=== PATIENT | female | born 1980 | race Caucasian/White ===

== ENCOUNTER 2020-03-24 12:05 | Emergency (ER) | payer MEDICAID ==
[~2020-03-24] VITALS: Ht 154.9 cm; Wt 100.0 kg
[2020-03-24 12:32] VITALS: BP 123/61
[2020-03-24] MEDS ORDERED: ALBU6.7H9 INH (12:32)
== END 2020-03-24 12:41 | disposition home or self-care (01) ==
LOC: ER 12:05
DX: J45.909 Unspecified asthma, uncomplicated (principal); R05 Cough; F15.90 Other stimulant use, unspecified, uncomplicated; F17.200 Nicotine dependence, unspecified, uncomplicated; Z79.899 Other long term (current) drug therapy
CPT/HCPCS: 99283

== ENCOUNTER 2020-03-26 12:20 | Emergency (ER) | payer MEDICAID ==
[~2020-03-26] VITALS: Ht 154.9 cm; Wt 100.0 kg
[~2020-03-26 12:20] MED LIST: ALBU6.7H9 INH
--- NOTE | 2020-03-26 12:37 | NUR ---
pt is 39 yo female c/o cough off and on x1 year, increased over past two days, runny nose x3 days, seen here on Tuesday and prescribed inhaler, pt did smoke/snort meth on Tuesday, started [facility] [employer] [facility] on Tuesday, smokes 1/2 ppd, report to Sheela EAGLE
[2020-03-26] MEDS ORDERED: BENZ-16 PO (14:26)
[2020-03-26 14:45] VITALS: BP 122/73
== END 2020-03-26 14:47 | disposition home or self-care (01) ==
LOC: ER 12:20
DX: J06.9 Acute upper respiratory infection, unspecified (principal); Z20.828 Contact with and (suspected) exposure to other viral communicable diseases; F15.90 Other stimulant use, unspecified, uncomplicated; Z79.899 Other long term (current) drug therapy
CPT/HCPCS: 36415; 99283